=== PATIENT | female | born 1985 | race American Indian/Alaskan Native ===

== ENCOUNTER 2019-01-10 09:49 | Outpatient (CLI) | payer MEDICAID ==
--- NOTE | 2019-01-10 11:49 | Magnetic Resonance Report ---
MR LE joint RT wo con INDICATION / CLINICAL INFORMATION: DISLOCATION OF RIGHT PATELLA(S83.004A). TECHNIQUE: Multiplanar, multisequence MR images were obtained. COMPARISON: None available. FINDINGS: No acute meniscal tear is seen. Medial meniscus body is partially extruded and there is mild degenera tive signal within the medial meniscus posterior junctional zone and posterior horn. Cruciate and collateral ligaments are intact, as is the extensor mechanism. There is no joint effusion. No significant subcutaneous edema. No bursal fluid collections are seen. There is mild diffuse cartilage thinning. No full-thickness cartilage defects are seen. Patellar retinaculum and patellofemoral ligaments are intact. Bone marrow signal is within normal limits. IMPRESSION: 1. No MRI evidence of recent patellar dislocation. The medial patellofemoral ligament is intact. 2. Mild tricompartmental cartilage thinning diffusely. No full-thickness cartilage defects are seen. 3. No acute meniscal tear is seen. Medial meniscus body is partially extruded and there is mild degen erative signal in the periphery of the posterior horn and posterior junctional zone. Signer Name: Leonides Barnett MD Signed: 01/10/2019 11:45 AM Workstation Name: [id number]
== END 2019-01-10 09:50 | disposition home or self-care (01) ==
LOC: MRI 09:49
DX: S83.004A Unspecified dislocation of right patella, initial encounter (principal); X58.XXXA Exposure to other specified factors, initial encounter; Y93.89 Activity, other specified; Y99.8 Other external cause status; Y92.89 Other specified places as the place of occurrence of the external cause
CPT/HCPCS: 73721